=== PATIENT | male | born 1960 | race Caucasian/White ===

== ENCOUNTER → 2017-12-16 | Outpatient (CLI) | payer BC ==
--- NOTE | 2017-12-16 20:52 | Diagnostic Imaging Report ---
PROCEDURE:C-SPINE COMPLETE COMPARISON:None. INDICATIONS:numbness in bilateral hands FINDINGS: Cervical spine is the visualized in the lateral view from the skull base to C7. No acute nondisplaced fractures. Mild degenerative disc changes C3-C4 No lytic or blastic lesions. Likely C5 limbus vertebra. Oblique views show patent neural foramina. CONCLUSION: No acute abnormalities. MRI cervical spine is recommended if there is continued numbness and clinical concern for foraminal narrowing. Vic Bower M.D. Dictated by: Vic Bower M.D. on 12/16/2017 at 19:07 Electronically approved by: Vic Bower M.D. on 12/16/2017 at 19:07
--- NOTE | 2017-12-16 20:52 | Diagnostic Imaging Report ---
PROCEDURE:HIPS BILAT 5 VWS (+/- PELVIS) COMPARISON:None. INDICATIONS:right thigh lump, numbness in left leg FINDINGS: Normal mineralization. No acute displaced fracture or dislocation. No lytic or blastic lesions. Mild bilateral hip joint degenerative changes, right greater than left. Sacroiliac joints are unremarkable. Nonobstructive bowel gas pattern. CONCLUSION: No acute abnormalities. Mild bilateral hip joint degenerative changes, right greater than left. Vic Bower M.D. Dictated by: Vic Bower M.D. on 12/16/2017 at 19:11 Electronically approved by: Vic Bower M.D. on 12/16/2017 at 19:11
== END ==
LOC: RAD 16:32
PROVIDERS: ATTEND Family Medicine
DX: G62.9 Polyneuropathy, unspecified (principal); D48.1 Neoplasm of uncertain behavior of connective and other soft tissue; M54.2 Cervicalgia; M25.552 Pain in left hip; M25.551 Pain in right hip
CPT/HCPCS: 72050; 73523

== ENCOUNTER → 2017-12-24 | Outpatient (CLI) | payer BC ==
--- NOTE | 2017-12-24 17:10 | Diagnostic Imaging Report ---
PROCEDURE:WRIST COMPLETE BILATERAL TECHNIQUE:Bilateral wrist radiographs were obtained. INDICATION:Bilateral wrist pain COMPARISON:None. FINDINGS: Left wrist: Intercarpal degenerative changes are noted. Moderate to severe joint space narrowing between the lunate and capitate, and at the radioscaphoid joint, and mild joint space narrowing at the first carpometacarpal joint. Multiple carpal lucencies are noted, likely representing erosions, most pronounced in the lunate and capitate. Periarticular osteopenia is noted involving the distal radius and ulna and proximal carpal bones. No evidence of soft tissue abnormalities. No evidence of fracture or malalignment. Right wrist: Mild intercarpal and first CMC degenerative changes with joint space narrowing. Possible erosion is present in the capitate. No evidence of fracture or malalignment. CONCLUSION: Degenerative changes of bilateral wrists, left greater than right. Cystic changes, likely representing erosions, are present in the left wrist and possibly right. Periarticular osteopenia is noted in the left wrist. Differential includes erosive/inflammatory arthritis, possibly superimposed on changes of osteoarthritis. Dictated by: ALMA FERNANDEZ M.D. on 12/24/2017 at 17:14 Electronically approved by: ALMA FERNANDEZ M.D. on 12/24/2017 at 17:14
--- NOTE | 2017-12-25 08:21 | Diagnostic Imaging Report ---
Exam: Cervical spine MRI without IV contrast History: Peripheral neuropathy with bilateral hand numbness. Comparison studies: Cervical spine x-ray 12/16/2017. Technique: Sagittal and axial T1 and T2, sagittal STIR and axial T2 GRE. Intravenous contrast: None Findings: Alignment: Normal lordosis. No scoliosis. Cervicomedullary junction: No abnormalities. Patent foramen magnum. Soft tissues: No T2 hyperintense inflammatory changes. Spinal cord: Normal in size and signal from the foramen magnum through T1. Vertebrae: No fractures, infection or neoplasm. Degenerative changes: C2-C3: Patent canal and foramina. No disc herniation. C3-C4: Mildly degenerated disc with loss of disc height. Mild bilateral foraminal stenosis due to uncovertebral arthrosis. No canal stenosis C4-C5: Mildly degenerated disc with loss of T2/STIR disc signal. Small disc bulge indents the thecal sac without significant canal stenosis. Mild bilateral foraminal stenosis due to uncovertebral arthrosis and right facet arthrosis. C5-C6: Mild bilateral foraminal stenosis due to uncovertebral facet arthrosis. No canal stenosis. C6-C7: Mildly degenerated disc with loss of disc height. Disc osteophyte complex and thickened ligamentum flavum result in moderate canal stenosis. Moderate bilateral frontal stenosis due to uncovertebral arthrosis. C7-T1: Mild right foraminal stenosis due to uncovertebral and facet arthrosis. Patent canal and left foramen. IMPRESSION: 1. Moderate degenerative canal stenosis with moderate bilateral foraminal stenosis at C6-C7. 2. Additional mild multilevel degenerative changes as described. Signed by: Dr. Gerald Dougherty M.D. on 12/25/2017 8:18 AM
== END ==
LOC: MRI 13:54
PROVIDERS: ATTEND Family Medicine
DX: G60.0 Hereditary motor and sensory neuropathy (principal); M54.2 Cervicalgia; M50.30 Other cervical disc degeneration, unspecified cervical region; M25.532 Pain in left wrist; M25.531 Pain in right wrist
CPT/HCPCS: 72141